=== PATIENT | male | born 1955 | race Caucasian/White ===

== ENCOUNTER 2017-12-02 08:06 | Day surgery (SDC) | payer BC ==
[~2017-12-02] VITALS: Ht 182.9 cm; Wt 71.1 kg
[2017-12-02] VITALS (7 sets, daily range): BP systolic 101–118; BP diastolic 53–75
[2017-12-02] MEDS ORDERED: normal saline 1000ml 1,000 ML IV PRN (08:35)
[2017-12-02] MEDS ORDERED: midazolam 2 mg/2 ml injection IV PRN (08:55)
[2017-12-02] MEDS ORDERED: heparin sodium, porcine/PF 100unit/ml 5ML syringe ICATH ONE (08:55)
[2017-12-02] MEDS ORDERED: fentaNYL/PF 50MCG/1 ML 2ML syringe IV PRN (08:55)
[2017-12-02] MEDS ORDERED: LIDOcaine 1%/PF 5ML 10 MG/ML VIAL SQ ONE (08:55)
[2017-12-02] MEDS ORDERED: LIDOcaine 1%/PF 5ML 10 MG/ML VIAL ONE ×2 (09:23→10:30)
[2017-12-02] MEDS ORDERED: fentaNYL/PF 50MCG/1 ML 2ML syringe ONE (09:34)
[2017-12-02] MEDS ORDERED: midazolam 2 mg/2 ml injection ONE (09:34)
[2017-12-02] MEDS ORDERED: heparin sodium, porcine/PF 100unit/ml 5ML syringe ONE (09:34)
== END 2017-12-02 12:05 | disposition home or self-care (01) ==
LOC: SSTAY O 08:06
PROVIDERS: ATTEND Radiology Diagnostic Radiology
DX: C18.0 Malignant neoplasm of cecum (principal); Z72.89 Other problems related to lifestyle; Z85.05 Personal history of malignant neoplasm of liver
CPT/HCPCS: 36561; 76937; 77001; 99152; 99153; A6219; C1788; C1894; J1642; J2001; J2250; J3010; J7030